=== PATIENT | female | born 2000 | race Caucasian/White ===

== ENCOUNTER 2024-10-17 05:36 | Day surgery (SDC) | payer BC ==
[2024-10-17] MEDS: Lactated Ringers 1,000 ML IV SCH (06:28)
[2024-10-17 06:39] VITALS: RESP 16; O2SAT 100
[2024-10-17 06:40] LABS: HCG URINE TEST NEGATIVE (NEGATIVE)
[2024-10-17] MEDS ORDERED: propofoL IV ONE ×2 (07:37→08:07)
[2024-10-17 09:20] VITALS: BP 105/75; PULSE 92; TEMP 97.2
--- NOTE | 2024-10-18 09:05 | OP ---
SURGERY DATE/TIME: 10/17/2024 [id number] PREOPERATIVE DIAGNOSIS: Change in bowel habits. POSTOPERATIVE DIAGNOSIS: Normal colon. PROCEDURE: Colonoscopy. SURGEON: Adelso Blank MD ANESTHESIA: MAC by Yonis Tapia CRNA. ESTIMATED BLOOD LOSS: None. SPECIMENS: None. DESCRIPTION OF PROCEDURE AND FINDINGS: After informed written consent was obtained, the patient was taken to the endoscopy suite. She was placed in a left lateral decubitus position, and anesthesia was titrated to the desired level of consciousness. Digital rectal exam showed normal sphincter tone and no internal lesions. The scope was inserted into the rectum, and sequentially, the entire colonic mucosa was traversed. The level of the cecum was reached and verified under direct visualization of the ileocecal valve. Prep was noted to be good. Upon withdrawal, careful mucosal inspection revealed no gross abnormalities. Prior to withdrawal, retroflexion showed no internal lesions. The scope was removed, and patient was transferred to the recovery room in good condition.
== END 2024-10-17 09:27 | disposition home or self-care (01) ==
LOC: SDC 05:36
PROVIDERS: ATTEND Family Medicine
DX: R19.4 Change in bowel habit (principal)
CPT/HCPCS: 81025; J2704